=== PATIENT | female | born 1960 | race Caucasian/White ===

== ENCOUNTER 2023-08-05 06:57 | Outpatient (OUT) | payer OTHER, SELFPAY ==
--- NOTE | 2023-08-05 07:01 | MM_ITS ---
Patient Name: CAMRYN WELLINGTON MR#: [id number] : 1960 Exam Date: 08/05/2023 Ordering Doctor: DR RICKY SARGENT RADIOLOGY REPORT PROCEDURE: MM TOMOSYNTHESIS SCREENING BI COMPARISON: MG MAMM SCREEN 3D [facility] CAD, 07/21/2022. MG MAMM SCREEN 3D [facility] CAD, 07/15/2021. MAMMO GOSIA SCREEN, 04/24/2020. MAMMO GOSIA SCREEN, 04/23/2019. INDICATIONS: Screening Calculator Name NCI Breast Cancer Risk Assessment Tool 5 Year Breast Cancer Risk 1.40% Lifetime Breast Cancer Risk 6.20% Personal Breast Cancer No Personal Ovarian Cancer No Treatments None Family Cancers None LOCATION: [facility] BREAST COMPOSITION: Extremely dense, which lowers the sensitivity of mammography. FINDINGS: DIAGNOSTIC CATEGORY 1--NEGATIVE. RIGHT BREAST: No significant suspicious finding. No significant change has occurred. LEFT BREAST: No significant suspicious finding. No significant change has occurred. RECOMMENDATIONS: ROUTINE MAMMOGRAM AND CLINICAL EVALUATION IN 12 MONTHS. PLEASE NOTE: A NORMAL MAMMOGRAM DOES NOT EXCLUDE THE POSSIBILITY OF BREAST CANCER. A CLINICALLY SUSPICIOUS PALPABLE LUMP SHOULD BE BIOPSIED. Dictated by: Anoop Harkins M.D. on 08/05/2023 at 14:10 Approved by: Anoop Harkins M.D. on 08/05/2023 at 14:12
== END 2023-08-05 06:58 | disposition home or self-care (01) ==
LOC: MAMMO 06:58
PROVIDERS: PCP Family Medicine; Visit Provider Obstetrics & Gynecology
DX: Z12.31 Encounter for screening mammogram for malignant neoplasm of breast (principal)
CPT/HCPCS: 77063; 77067

== ENCOUNTER 2024-08-24 06:51 | Outpatient (OUT) | payer OTHER, SELFPAY ==
--- NOTE | 2024-08-24 07:18 | MM_ITS ---
Patient Name: CAMRYN WELLINGTON MR#: [id number] : 1960 Exam Date: 08/24/2024 Ordering Doctor: DR RICKY SARGENT RADIOLOGY REPORT PROCEDURE: MM TOMOSYNTHESIS SCREENING BI COMPARISON: MM TOMOSYNTHESIS SCREENING BI, 08/05/2023. MG MAMM SCREEN 3D GOS[facility] CAD, 07/21/2022. MG MAMM SCREEN 3D GOSIA CAD, 07/15/2021. MAMMO GOSIA SCREEN, 03/11/2018. INDICATIONS: Screening Calculator Name NCI Breast Cancer Risk Assessment Tool 5 Year Breast Cancer Risk 1.40% Lifetime Breast Cancer Risk 6.00% Personal Breast Cancer No Personal Ovarian Cancer No Treatments None Family Cancers Father with prostate cancer at age 70. LOCATION: [facility] BREAST COMPOSITION: There are scattered areas of fibroglandular density. FINDINGS: DIAGNOSTIC CATEGORY 1--NEGATIVE. RIGHT BREAST: No significant suspicious finding. LEFT BREAST: No significant suspicious finding. RECOMMENDATIONS: ROUTINE MAMMOGRAM AND CLINICAL EVALUATION IN 12 MONTHS. PLEASE NOTE: A NORMAL MAMMOGRAM DOES NOT EXCLUDE THE POSSIBILITY OF BREAST CANCER. A CLINICALLY SUSPICIOUS PALPABLE LUMP SHOULD BE BIOPSIED. Dictated by: Elvin Zendejas DO on 08/24/2024 at 15:46 Approved by: Elvin Zendejas DO on 08/24/2024 at 15:48
== END 2024-08-24 06:52 | disposition home or self-care (01) ==
LOC: MAMMO 06:51
PROVIDERS: PCP Family Medicine; Visit Provider Obstetrics & Gynecology
DX: Z12.31 Encounter for screening mammogram for malignant neoplasm of breast (principal); Z80.42 Family history of malignant neoplasm of prostate
CPT/HCPCS: 77063; 77067